=== PATIENT | female | born 1990 | race African-American/Black ===

== ENCOUNTER 2018-09-11 08:51 | Emergency (ER) | payer BC ==
[~2018-09-11] VITALS: Ht 157.5 cm; Wt 66.2 kg
[2018-09-11 08:51] VITALS: BP_SYST 142
--- NOTE | 2018-09-11 08:51 | NUR ---
BROUGHT BACK TO BED #6 AND TRIAGED. REPORT GIVEN TO MILAGROS
--- NOTE | 2018-09-11 08:55 | NUR ---
Patient to bed 6 and placed in bed. Side rails up.
--- NOTE | 2018-09-11 09:03 | NUR ---
Dr. Chavez @ bedside examing patient.
--- NOTE | 2018-09-11 09:04 | NUR ---
Patient AO x4 and obeying commands. Patient complaining of left sided pain and lower back pain that radiates to left ankle. Patient states her pain level is 10/10. Patient also complaining of left sided numbness. Patient states she is allergic to DPT immunization. Patient states that she has been taking ibuprofen since November. Patient has a hx of scoliosis, GERD, and is on remission for bladder cancer. Mother @ bedside.
[2018-09-11] MEDS ORDERED: NACL 0.9% 1,000 ML IV ONE (09:07)
[2018-09-11] MEDS ORDERED: ONDANSETRON HCL 4 MG/2 ML VIAL IVP ONE (09:15)
[2018-09-11] MEDS ORDERED: fentaNYL CITRATE/PF 100 MCG/2 ML AMP IVP ONE (09:15)
[2018-09-11] MEDS ORDERED: PANTOPRAZOLE SODIUM 40 MG/VIAL (PROTONIX) IVP ONE (09:15)
[2018-09-11 09:37] LABS: BASOPHILS # (AUTO) 0.1 K/uL (0.0-0.2); BASOPHILS % (AUTO) 0.4 % (0.0-2.0); EOSINOPHILS # (AUTO) 0.2 K/uL (0.0-0.4); EOSINOPHILS % (AUTO) 1.5 % (0.0-4.0); HEMATOCRIT 38.5 % (36-48); HEMOGLOBIN 12.3 g/dL (12.0-16.0); LYMPHOCYTES # (AUTO) 2.5 K/uL (1.0-5.5); LYMPHOCYTES % (AUTO) 18.4 % (20.5-51.5); MEAN CORPUSCULAR HEMOGLOBIN 26 pg (27-31); MEAN CORPUSCULAR HGB CONC 32 % (32-36); MEAN CORPUSCULAR VOLUME 80 fL (79.0-98.0); MONOCYTES # (AUTO) 0.9 K/uL (0.0-1.0); MONOCYTES % (AUTO) 6.2 % (1.7-9.3); NEUTROPHILS % (AUTO) 73.5 % (40.0-70.0); PLATELET COUNT (AUTO) 323 K/uL (130-430); RED BLOOD CELL COUNT(AUTO) 4.81 MIL/uL (4.2-6.2); RED CELL DISTRIBUTION WIDTH 16.8 % (9.0-15.0); WHITE BLOOD COUNT (AUTO) 13.7 K/uL (4.8-10.8)
[2018-09-11 09:50] LABS: CALCIUM 10.1 mg/dL (8.4-11.0); CREATININE 0.93 mg/dL (0.55-1.30); POTASSIUM 3.4 mmol/L (3.5-5.1)
[2018-09-11 09:55] LABS: ALBUMIN 4.2 g/dL (3.4-4.8); TOTAL BILIRUBIN 1.3 mg/dL (0.0-1.0)
--- NOTE | 2018-09-11 10:05 | NUR ---
Patient lying in bed with mom @ bedside. VSS. Patient stated that pain medication is working. No signs of acute distress noted. Mom @ bedside.
--- NOTE | 2018-09-11 10:15 | NUR ---
Pt taken to radiology for CT scan.
--- NOTE | 2018-09-11 10:22 | NUR ---
Patient back from CT scan.
--- NOTE | 2018-09-11 11:00 | NUR ---
Patient sleeping in bed @ this time. Mom still @ bedside. No signs of acute distress noted. Patient not complaining of pain. Will continue to monitor.
[2018-09-11] MEDS ORDERED: MORPHINE 4 MG/ML INJ. SYRINGE IVP ONE (12:00)
--- NOTE | 2018-09-11 12:26 | NUR ---
Patient given written and verbal discharge instructions and verbalizes understanding. ER MD Chavez discussed with patient the results and treatment provided. Patient in stable condition. ID arm band removed. IV catheter removed intact and dressing applied, no active bleeding. Rx of Tramadol, Zofran, Robaxin, Carafate, Medrol Dosepak given. Patient educated on pain management and to follow up with PMD. Pain Scale 2. Opportunity for questions provided and answered. Medication side effect fact sheet provided.
[2018-09-11 12:27] VITALS: BP_SYST 118
== END 2018-09-11 12:26 | disposition home or self-care (01) ==
LOC: SED 08:51
DX: M54.42 Lumbago with sciatica, left side (principal); K21.9 Gastro-esophageal reflux disease without esophagitis; R11.10 Vomiting, unspecified
CPT/HCPCS: 36415; 74176; 80053; 83690; 85025; 96361; 96374; 96375; 99284; C9113; J2270; J2405; J3010; J7030